=== PATIENT | male | born 1935 | race Caucasian/White ===

== ENCOUNTER 2016-07-18 10:04 | Inpatient (IN) | payer MEDICARE ==
[~2016-07-18] VITALS: Ht 170.2 cm; Wt 82.3 kg
[2016-07-18] VITALS (7 sets, daily range): BP systolic 117–135; BP diastolic 66–78; PULSE 72–85; RESP 15–20; TEMP 97.3–97.8; O2SAT 97
[~2016-07-18 10:04] MED LIST: ACYC-1 PO; AMLO10 PO; CEPROZIL; GABA300 PO; LISI5 PO; OMEP20TA OR; SIMV10TA OR; SITA100 PO; SULF-154 PO; TERA10CA3 PO; TYLE3 PO; XANA0.5T PO
[2016-07-18] MEDS ORDERED: SODIUM CHLORIDE 0.9% FLUSH 5 ML FLUSH IVF PRN (10:15)
[2016-07-18] MEDS ORDERED: AMLO10TA2 PO (10:19)
[2016-07-18] MEDS ORDERED: LISI40TA PO (10:19)
[2016-07-18] MEDS ORDERED: ALPR0.5T3 PO (10:19)
[2016-07-18] MEDS ORDERED: TERA10CA3 PO (10:19)
[2016-07-18] MEDS ORDERED: SITA50 PO (10:19)
[2016-07-18] MEDS ORDERED: GLIP10TA6 PO (10:19)
[2016-07-18] MEDS ORDERED: SIMV10TA PO (10:19)
[2016-07-18] MEDS ORDERED: ASPI81TA81 (10:19)
--- NOTE | 2016-07-18 10:21 | PD ---
HPI Chief Complaint: GI Complaint Time Seen by Provider: 10:07 Travel History International Travel<30 days: No Contact w/Intl Traveler<30days: No Traveled to known affect area: No History of Present Illness HPI This patient complains of bright red rectal bleeding that started at 3:30 AM this morning. Duration is 6 hours. Severity of symptoms is moderate. No syncope but he is lightheaded and feels weak. No abdominal pain. He has long- standing history of intermittent rectal bleeding. He has had many colonoscopies. In [place] in January 2016 he had significant rectal bleeding and was hospitalized and underwent partial colectomy for diverticular bleeding. He takes no blood thinners. He recently started taking a baby aspirin daily. No alleviating factors. PFSH Past Medical History Asthma: Yes Blood Disorders: No Anxiety: Yes Heart Rhythm Problems: No Cancer: No Cardiovascular Problems: No High Cholesterol: Yes Chemotherapy: No Chest Pain: No Congestive Heart Failure: No Diabetes: Yes (2) Patient Takes Glucophage: No Diminished Hearing: No Diverticulitis: Yes Endocrine: No Gastrointestinal Disorders: Yes (NAUSEA;DIVERTICULOSIS) GERD: Yes Genitourinary: No Hepatitis: No Hiatal Hernia: No Hypertension: Yes Immune Disorder: No Medical other: Yes (DIFFICULTY SWALLOWING; HAS PAIN RIGHT SIDE AFTER EATING; HX RECTAL BLEEDING) Musculoskeletal: No Neurologic: No Psychiatric: No Reproductive: No Respiratory: No Radiation Therapy: No Sleep Apnea: No Thyroid Disease: No Past Surgical History Abdominal Surgery: Yes (CHOLYCYSTECTOMY) AICD: No Appendectomy: Yes Cholecystectomy: Yes Joint Replacement: No Oral Surgery: Yes (TONSILS) Pacemaker: No Tonsillectomy: Yes Other Surgery: Yes (see hx) Social History Alcohol Use: No Tobacco Use: No Substance Use: No Allergies-Medications (Allergen,Severity, Reaction): Coded Allergies: Amoxicillin (Verified Allergy, Mild, RASH, 07/18/16) PT STATES "THRUSH" 30 YEARS AGO Reported Meds & Prescriptions Reported Meds & Active Scripts Active Reported Glipizide 10 Mg Tab 10 Mg PO BIDAC Take 30 minutes before a meal Aspir-81 (Aspirin) 81 Mg Tabdr Alprazolam 0.5 Mg Tab 0.5 Mg PO Q4H PRN Simvastatin 10 Mg Tab 10 Mg PO DAILY Terazosin (Terazosin HCl) 10 Mg Cap 10 Mg PO HS Januvia (Sitagliptin Phosphate) 50 Mg Tab 50 Mg PO DAILY Lisinopril 40 Mg Tab 40 Mg PO DAILY Amlodipine (Amlodipine Besylate) 10 Mg Tab 10 Mg PO DAILY Review of Systems General / Constitutional: No: Fever Eyes: No: Visual changes HENT: No: Headaches Cardiovascular: No: Chest Pain or Discomfort Respiratory: No: Shortness of Breath Gastrointestinal: Positive: Hematochezia, No: Abdominal Pain Genitourinary: No: Dysuria Musculoskeletal: No: Pain Skin: No Rash Neurologic: No: Weakness Psychiatric: No: Depression Endocrine: No: Polydipsia Hematologic/Lymphatic: No: Easy Bruising Physical Exam Narrative GENERAL: Well-nourished, well-developed patient in no apparent distress. SKIN: Warm and dry. HEAD: Atraumatic. Normocephalic. EYES: Pupils equal and round. No scleral icterus. No injection or drainage. ENT: No nasal bleeding or discharge. Mucous membranes pink and moist. NECK: Trachea midline. No JVD. CARDIOVASCULAR: Regular rate and rhythm. No murmur appreciated. RESPIRATORY: No accessory muscle use. Clear to auscultation. Breath sounds equal bilaterally. GASTROINTESTINAL: Abdomen soft, non-tender, nondistended. Hepatic and splenic margins not palpable. MUSCULOSKELETAL: No obvious deformities. No clubbing. No cyanosis. No edema. NEUROLOGICAL: Awake and alert. No obvious cranial nerve deficits. Motor grossly within normal limits. Normal speech. PSYCHIATRIC: Appropriate mood and affect; insight and judgment normal. Data Data Last Documented VS Vital Signs Date Time Temp Pulse Resp B/P Pulse Ox O2 Delivery O2 Flow Rate FiO2 07/18/16 10:05 97.8 85 15 135/78 97 Orders Basic Metabolic Panel (Bmp) (07/18/16 10:15) Complete Blood Count With Diff (07/18/16 10:15) Prothrombin Time / Inr (Pt) (07/18/16 10:15) Act Partial Throm Time (Ptt) (07/18/16 10:15) Ecg Monitoring (07/18/16 10:15) Iv Access Insert/Monitor (07/18/16 10:15) Oximetry (07/18/16 10:15) Sodium Chloride 0.9% Flush (Ns Flush) (07/18/16 10:15) Consult Gastroenterology (07/18/16 ) Place In Observation (07/18/16 ) Diet Npo (07/18/16 Lunch) Sodium Chloride 0.9% Flush (Ns Flush) (07/18/16 13:15) Sodium Chloride 0.9% Flush (Ns Flush) (07/18/16 21:00) Pantoprazole Inj (Protonix Inj) (07/19/16 09:00) Hgb & Hct (07/18/16 13:10) Hgb & Hct (07/18/16 21:10) Hgb & Hct (07/19/16 05:10) Hgb & Hct (07/19/16 13:10) Hgb & Hct (07/19/16 21:10) Hgb & Hct (07/20/16 05:10) Type And Screen (07/18/16 13:10) Resp Oxygen Brandan C Titrat 1-4 L (07/18/16 ) Scd Bilateral/Knee High LANA.BID (07/18/16 13:10) ^ Other Nursing Orders (07/18/16 13:10) Vital Signs (Adult) Q4H (07/18/16 13:10) Activity Bed Rest (07/18/16 13:10) ^ Risk Control Manager / Telemetry .CONTINUOUS (07/18/16 13:10) Intake + Output LANA.QSHIFT (07/18/16 13:10) Sodium Chlor 0.9% 1000 Ml Inj (Ns 1000 M (07/18/16 14:00) Acetaminophen (Tylenol) (07/18/16 13:15) Ondansetron Inj (Zofran Inj) (07/18/16 13:15) Bisacodyl Supp (Dulcolax Supp) (07/18/16 13:15) Magnesium Hydroxide Liq (Milk Of Magnesi (07/18/16 13:15) Sennosides (Senokot) (07/18/16 13:15) Basic Metabolic Panel (Bmp) (07/19/16 06:00) Naloxone Inj (Narcan Inj) (07/18/16 13:15) Alprazolam (Xanax) (07/18/16 13:15) Bedside Glucose LANA.AC&HS&03 (07/18/16 13:16) ^ Blood Glucose Goal (Criteria (07/18/16 13:16) ^ Hypoglycemia 51 - 69 Mg/Dl (07/18/16 13:16) ^ Hypoglycemia 50 Mg/Dl Or < (07/18/16 13:16) ^ Notify Dr: Other (07/18/16 13:16) Dextrose 50% In [place] (Vial) Inj (D50w (Vi (07/18/16 13:30) Glucagon Inj (Glucagon Inj) (07/18/16 13:30) Insulin Aspart Supplemtl Scale (Novolog (07/18/16 16:00) Labs Laboratory Tests Test 07/18/16 10:15 White Blood Count 13.4 TH/MM3 Red Blood Count 4.92 MIL/MM3 Hemoglobin 12.3 GM/DL Hematocrit 38.0 % Mean Corpuscular Volume 77.2 FL Mean Corpuscular Hemoglobin 24.9 PG Mean Corpuscular Hemoglobin 32.3 % Concent Red Cell Distribution Width 17.1 % Platelet Count 244 TH/MM3 Mean Platelet Volume 9.2 FL Neutrophils (%) (Auto) 74.7 % Lymphocytes (%) (Auto) 13.2 % Monocytes (%) (Auto) 8.8 % Eosinophils (%) (Auto) 2.5 % Basophils (%) (Auto) 0.8 % Neutrophils # (Auto) 10.0 TH/MM3 Lymphocytes # (Auto) 1.8 TH/MM3 Monocytes # (Auto) 1.2 TH/MM3 Eosinophils # (Auto) 0.3 TH/MM3 Basophils # (Auto) 0.1 TH/MM3 CBC Comment AUTO DIFF Differential Comment AUTO DIFF CONFIRMED Platelet Estimate NORMAL Platelet Morphology Comment NORMAL Prothrombin Time 10.2 SEC Prothromb Time International 0.9 RATIO Ratio Activated Partial 27.9 SEC Thromboplast Time Sodium Level 141 MEQ/L Potassium Level 4.2 MEQ/L Chloride Level 108 MEQ/L Carbon Dioxide Level 25.1 MEQ/L Anion Gap 8 MEQ/L Blood Urea Nitrogen 29 MG/DL Creatinine 1.66 MG/DL Estimat Glomerular Filtration 40 ML/MIN Rate Random Glucose 145 MG/DL Calcium Level 8.1 MG/DL MDM Medical Decision Making Medical Screen Exam Complete: Yes Emergency Medical Condition: Yes Medical Record Reviewed: Yes Differential Diagnosis Diverticular bleed, internal hemorrhoids, polyp Narrative Course I have reviewed the patient's electronic medical record. Last hemoglobin on file was 13.7 done 2 years ago. Review GI consultation from 3 years ago. IV placed CBC shows hemoglobin of 12.3 Metabolic profile reasonably normal Coagulation studies are normal Patient's abdomen is soft and benign and nontender. His vital signs are normal. But he is having significant active bright red rectal bleeding while here in the ER. He is lightheaded and feeling weak and not comfortable going home. I think his hemoglobin will drop on recheck and I reviewed his case with the hospitalist. He will be admitted for acute lower GI bleed. Diagnosis Primary Impression: Lower GI bleed Admitting Information Admitting Physician Requests: Admit Naun Fong MD Jul 18, 2016 10:21
[2016-07-18 10:29] LABS: BASOPHIL # 0.1 TH/MM3 (0-0.2); BASOPHIL % 0.8 % (0.0-2.0); EOSINOPHIL # 0.3 TH/MM3 (0-0.4); EOSINOPHIL % 2.5 % (0.0-4.0); LYMPH % 13.2 % (9.0-44.0); LYMPHOCYTE # 1.8 TH/MM3 (1.0-4.8); MEAN CELL VOLUME 77.2 FL (80.0-100.0); MEAN CORPUSCULAR HEMOGLOBIN 24.9 PG (27.0-34.0); MEAN CORPUSCULAR HGB CONC 32.3 % (32.0-36.0); MONO % 8.8 % (0.0-8.0); NEUT % 74.7 % (16.0-70.0); PLATELET COUNT 244 TH/MM3 (150-450); RED BLOOD COUNT 4.92 MIL/MM3 (4.50-5.90); RED CELL DISTRIBUTION WIDTH 17.1 % (11.6-17.2); WHITE BLOOD COUNT 13.4 TH/MM3 (4.0-11.0)
[2016-07-18 10:38] LABS: HEMO FLAGS AUTO DIFF
[2016-07-18 10:40] LABS: APTT (PATIENT) 27.9 SEC (24.3-30.1); INTERNATIONAL NORMALIZED RATIO 0.9 RATIO; PROTHROMBIN TIME - PATIENT 10.2 SEC (9.8-11.6)
[2016-07-18 10:49] LABS: BICARBONATE 25.1 MEQ/L (21.0-32.0); POTASSIUM 4.2 MEQ/L (3.5-5.1)
[2016-07-18 11:18] LABS: PLATELET ESTIMATE SMEAR NORMAL (NORMAL); PLATELET MORPHOLOGY NORMAL (NORMAL); SCAN/DIFF AUTO DIFF CONFIRMED
[2016-07-18] MEDS ORDERED: BISACODYL 10 MG SUPP PR PRN (13:15)
[2016-07-18] MEDS ORDERED: NALOXONE HCL 0.4 MG/ML AMP IV PRN (13:15)
[2016-07-18] MEDS ORDERED: MAGNESIUM HYDROXIDE SUSP 30 ML CUP PO PRN (13:15)
[2016-07-18] MEDS ORDERED: SODIUM CHLORIDE 0.9% FLUSH 5 ML FLUSH IV PRN (13:15)
[2016-07-18] MEDS ORDERED: ALPRAZolam 0.5 MG TAB PO PRN (13:15)
[2016-07-18] MEDS ORDERED: ONDANSETRON HCL 4 MG/2 ML VIAL IVP PRN (13:15)
[2016-07-18] MEDS ORDERED: ACETAMINOPHEN 325 MG TAB PO PRN (13:15)
[2016-07-18] MEDS ORDERED: SENNOSIDES 8.6 MG TAB PO PRN (13:15)
[2016-07-18] MEDS ORDERED: GLUCAGON 1 MG/ML VIAL OTHER PRN (13:30)
[2016-07-18] MEDS ORDERED: DEXTROSE 50% IN WATER 50 ML VIAL(D50) IV PUSH PRN (13:30)
[2016-07-18] MEDS: SODIUM CHLOR 0.9% 1000 ML INJ 1,000 ML IV SCH (13:55)
[2016-07-18] MEDS: INSULIN ASPART SUPPLEMENTAL SCALE SQ SCH ×2 (16:00→21:00)
[2016-07-18] MEDS ORDERED: DEXTROSE 5%-LACTATED RING INJ 1,000 ML IV SCH (17:37)
--- NOTE | 2016-07-18 17:41 | HHI.HP ---
[facility] Primary Care Physician Bambi Araujo MD Admission Diagnosis LOWER GI BLEED Diagnoses: Chief Complaint: rectal bleeding Travel History International Travel<30 Days: No Contact w/Intl Traveler <30 Da: No Traveled to Known Affected Are: No History of Present Illness 80-year-old male with history of HTN, HLD, DM, GERD, BPH, CKD stage III, asthma , diverticulosis, prior GI bleeding, presents with acute onset of rectal bleeding today 07/18. The patient reports a long history of GI bleeding with multiple colonoscopies, diverticular clipping, and recently partial colectomy in [place] in January 2016. He states he has been doing very well since the colectomy, no further bleeding. Approximately 2 weeks ago he started having intermittent chest pains which he states are "hard to explain", located across the anterior chest, sometimes down the left arm, not associated with exertion, lasts several minutes then goes away on its own. No other symptoms like dizziness, SOB, palpitations, diaphoresis, leg pain and swelling. No hx CAD or PE. He started taking baby aspirin 2 weeks ago because of the chest pain. He saw his PCP Dr. Araujo who has referred him to a phys therapist. However this morning around 3:30am the patient started having bright red rectal bleeding mixed with dark stools. He states this is different from his prior GI bleeds because today he had some upper abdominal/epigastric "gurgling", no pain, just uncomfortable. Denies NSAID use. Denies any nausea/vomiting/hematemesis. Denies fevers/chills. He now started feeling weak and lightheaded. He has no other medical complaints at this time. He is from [place], but follows with GI Dr. Ye while here in [place], last seen 2 years ago. Upon arrival, Hgb 12.3, down from 13.7 in 2014. He continues to have BRBPR in the ED. Review of Systems Constitutional: DENIES: Diaphoretic episodes, Fever, Chills, Dizziness Endocrine: DENIES: Polydipsia, Polyuria, Polyphagia Eyes: DENIES: Blurred vision, Diplopia, Double Vision Ears, nose, mouth, throat: DENIES: Throat pain, Running Nose, Odynophagia Respiratory: DENIES: Cough, Shortness of breath Cardiovascular: COMPLAINS OF: Chest pain, DENIES: Palpitations, Dyspnea on Exertion, Lower Extremity Edema, Orthopnea Gastrointestinal: COMPLAINS OF: Abdominal pain, Bloody stools, DENIES: Constipation, Diarrhea, Nausea, Vomiting Genitourinary: DENIES: Urinary frequency, Urgency, Dysuria Musculoskeletal: DENIES: Back pain, Neck pain Integumentary: DENIES: Pruritus, Rash Hematologic/lymphatic: DENIES: Bruising, Lymphadenopathy Immunologic/allergic: DENIES: Eczema, Urticaria Neurologic: DENIES: Abnormal gait, Headache, Localized weakness Psychiatric: DENIES: Anxiety, Depression Past Family Social History Past Medical History HTN HLD DM, type 2 GERD BPH CKD stage III asthma diverticulosis prior GI bleeding anxiety Past Surgical History Partial colectomy Jan 2016 in [place] Multiple EGD/colonoscopy with diverticular clipping Cholecystectomy Appendectomy Tonsillectomy Bilateral eye lasik surgery Reported Medications Glipizide 10 Mg Tab 10 Mg PO BIDAC Take 30 minutes before a meal Aspir-81 (Aspirin) 81 Mg Tabdr Alprazolam 0.5 Mg Tab 0.5 Mg PO Q4H PRN Simvastatin 10 Mg Tab 10 Mg PO DAILY Terazosin (Terazosin HCl) 10 Mg Cap 10 Mg PO HS Januvia (Sitagliptin Phosphate) 50 Mg Tab 50 Mg PO DAILY Lisinopril 40 Mg Tab 40 Mg PO DAILY Amlodipine (Amlodipine Besylate) 10 Mg Tab 10 Mg PO DAILY Allergies: Coded Allergies: Amoxicillin (Verified Allergy, Mild, RASH, 07/18/16) PT STATES "THRUSH" 30 YEARS AGO Active Ordered Medications Current Medications Medications (Trade) Dose Ordered Sig/Noelle Route Start Time Stop Time Status Last Admin (NS Flush) 2 ml UNSCH PRN IV 07/18/16 13:15 (NS Flush) 2 ml BID IV 07/18/16 21:00 Pantoprazole Sodium 40 mg 40 mg DAILY IV 07/19/16 09:00 (NS 1000 ml Inj) 1,000 ml @ 70 mls/hr [id number] IV 07/18/16 14:00 07/18/16 13:55 (Tylenol) 650 mg Q4H PRN PO 07/18/16 13:15 (Zofran Inj) 4 mg Q6H PRN IVP 07/18/16 13:15 (Dulcolax Supp) 10 mg DAILY PRN VA 07/18/16 13:15 (Milk Of [place]ramona Liq) 30 ml Q12H PRN PO 07/18/16 13:15 (Senokot) 17.2 mg Q12H PRN PO 07/18/16 13:15 (Narcan Inj) 0.4 mg UNSCH PRN IV 07/18/16 13:15 (Xanax) 0.5 mg Q4H PRN PO 07/18/16 13:15 (D50w (Vial) Inj) 25 ml UNSCH PRN IV PUSH 07/18/16 13:30 (Glucagon Inj) 1 mg UNSCH PRN OTHER 07/18/16 13:30 Family History Grandmother with CVA Mother age 92 and father age 88, no significant health problems Social History Smoked tobacco socially in his 20s, none since Denies alcohol use or illicit drug use Physical Exam Vital Signs Vital Signs Date Time Temp Pulse Resp B/P Pulse Ox O2 Delivery O2 Flow Rate FiO2 07/18/16 16:06 72 18 117/69 97 Room Air 07/18/16 14:00 74 20 125/68 97 Room Air 07/18/16 13:26 80 18 124/66 97 Room Air 07/18/16 10:05 97.8 85 15 135/78 97 Physical Exam GENERAL: Well-nourished, well-developed patient in NAD. SKIN: Warm and dry. No rash. HEAD: Normocephalic. Atraumatic. EYES: Pupils equal and round. No scleral icterus. No injection or drainage. ENT: No nasal bleeding or discharge. Mucous membranes pink and moist. NECK: Supple. Trachea midline. CARDIOVASCULAR: Regular rate and rhythm. S1, S2 noted. No murmur appreciated. RESPIRATORY: No accessory muscle use. Clear to auscultation. Breath sounds equal bilaterally. GASTROINTESTINAL: Abdomen soft, nondistended, mild diffuse mid abdominal/ umbilical tenderness to palpation. Normoactive bowel sounds x4. MUSCULOSKELETAL: No obvious deformities. Extremities without clubbing, cyanosis , or edema. NEUROLOGICAL: Awake and alert. No obvious cranial nerve deficits. Motor grossly within normal limits. Normal speech. PSYCHIATRIC: Appropriate mood and affect; insight and judgment normal. Laboratory Laboratory Tests Test 07/18/16 10:15 White Blood Count 13.4 Red Blood Count 4.92 Hemoglobin 12.3 Hematocrit 38.0 Mean Corpuscular Volume 77.2 Mean Corpuscular Hemoglobin 24.9 Mean Corpuscular Hemoglobin 32.3 Concent Red Cell Distribution Width 17.1 Platelet Count 244 Mean Platelet Volume 9.2 Neutrophils (%) (Auto) 74.7 Lymphocytes (%) (Auto) 13.2 Monocytes (%) (Auto) 8.8 Eosinophils (%) (Auto) 2.5 Basophils (%) (Auto) 0.8 Neutrophils # (Auto) 10.0 Lymphocytes # (Auto) 1.8 Monocytes # (Auto) 1.2 Eosinophils # (Auto) 0.3 Basophils # (Auto) 0.1 CBC Comment AUTO DIFF Differential Comment AUTO DIFF CONFIRMED Platelet Estimate NORMAL Platelet Morphology Comment NORMAL Prothrombin Time 10.2 Prothromb Time International 0.9 Ratio Activated Partial 27.9 Thromboplast Time Sodium Level 141 Potassium Level 4.2 Chloride Level 108 Carbon Dioxide Level 25.1 Anion Gap 8 Blood Urea Nitrogen 29 Creatinine 1.66 Estimat Glomerular Filtration 40 Rate Random Glucose 145 Calcium Level 8.1 Result Diagram: 07/18/16 1015 07/18/16 1015 Assessment and Plan Problem List: (1) GI bleed ICD Code: K92.2 Status: Acute (2) Chest pain ICD Code: R07.9 Status: Acute (3) Hypertension ICD Code: I10 Status: Chronic (4) Diabetes mellitus ICD Code: E11.9 Status: Chronic (5) Hyperlipidemia ICD Code: E78.5 Status: Chronic (6) Anxiety ICD Code: F41.9 Status: Chronic Assessment and Plan 80-year-old male with history of HTN, HLD, DM, GERD, BPH, CKD stage III, asthma , anxiety, diverticulosis, prior GI bleeding, presents with acute onset of rectal bleeding today 07/18. The patient reports a long history of GI bleeding with multiple colonoscopies, diverticular clipping in the past, and recently partial colectomy in [place] in January 2016. Has been doing very well since the colectomy, no further bleeding, until this morning around 3:30am. He is from [place], but follows with GI Dr. Flora Ye while here in [place], last seen 2 years ago. GI Bleeding: BRBPR mixed with dark stools, acute onset 07/18. Hgb 12.3, down from 13.7 in 2015. Hold patient's aspirin. Start on IVF, IV Protonix. Monitor serial H&H, transfuse if Hgb < 8.0. Consult GI, Dr. Ye. Clear liquid diet for now, NPO after midnight. Chest Pains, atypical: intermittent [id number]. Holding aspirin with GIB as above. Check serial cardiac enzymes and EKG x2. Check CXR. Nuclear stress test in the am. Acute on Chronic Kidney Disease, stage III: Cr 1.66, previously 1.41 in 2014. Continue on IVF. Repeat BMP in the am. HTN: chronic, holding patient's Lisinopril and Norvasc for now, concern for hypovolemia resulting in hypotension with GI bleed as above. Monitor BP, add antihypertensives as needed. HLD: chronic, continue patient's statin. DM, type 2: hold patient's Glipizide and Januvia for now. Monitor Accu-cheks and cover with SSI. Anxiety: chronic, continue patient's Xanax prn. DVT Prophylaxis: teds/SCDs Written by Judie Villarreal, acting as scribe for Dr. Rosales on 07/18/16 at 17: 15. The documentation accurately reflects the work performed [id number] by me on at [id number] Code Status Full Code Discussed Condition With Patient, ER Judie Mcfarlane PA-C Jul 18, 2016 17:41 [place] Rosales MD Jul 18, 2016 18:01
--- NOTE | 2016-07-18 18:12 | RADRPT ---
EXAM DATE/TIME: 07/18/2016 18:03 [facility] COMPARISON: CHEST SINGLE AP, August 16, 2014, 9:52. INDICATIONS : Chest pain. MEDICAL HISTORY : Hypertension. SURGICAL HISTORY : None. ENCOUNTER: Initial ACUITY: 1 day PAIN SCORE: 0/10 LOCATION: Bilateral chest FINDINGS: A single view of the chest demonstrates the lungs to be symmetrically aerated without evidence of mas s, infiltrate or effusion. The cardiomediastinal contours are unremarkable. Osseous structures are intact. CONCLUSION: No acute disease. Lupillo Landaverde MD on July 18, 2016 at 18:10 Board Certified Radiologist. This report was verified electronically.
[2016-07-18 19:05] LABS: CREATINE KINASE 97 U/L (39-308)
--- NOTE | 2016-07-18 20:32 | MB ---
cc: MARIFER ROSALES MD, JUAN DATE OF CONSULTATION: 07/18/2016. REASON FOR CONSULTATION: Lower GI bleed. HISTORY OF PRESENT ILLNESS: Mr. Mosqueda is a pleasant 80-year-old gentleman with history of hypertension, hyperlipidemia, diabetes, gastroesophageal reflux disease, BPH, chronic kidney disease, diverticulosis status post partial colectomy in January of 2016 who presented today to the hospital complaining of an episode of rectal bleeding. He reports that around 03:00 a.m. this morning he had an episode of hematochezia with dark and bright red blood as well as some clots in it. He had a repeat episode around 06:00 a.m., which was similar to the first one and that made him come to the emergency room to be evaluated. He has had an episode similar to this in the past. He had a recent surgery done in [place] where they removed part of his sigmoid colon secondary to diverticulosis. He has not had any problems since surgery until now. While in the hospital, he had one more episode around noon today. He did start taking two baby aspirin for the past week or so due to some chest pressure episodes. He also reports he had a significant increase in blood pressure before these episodes happened. He also noticed some upper abdominal discomfort; however, denies any nausea, vomiting or hematemesis. He had an upper endoscopy before the surgery and as per the patient, it was normal. Since his arrival, he has been hemodynamically stable. His hemoglobin on admission was 12.3. PAST MEDICAL HISTORY: 1. Hypertension. 2. Hyperlipidemia. 3. Diabetes type 2. 4. Gastroesophageal reflux disease (GERD). 5. Benign prostate hypertrophy. 6. Chronic kidney disease stage III. 7. Diverticulosis. 8. Asthma. PAST SURGICAL HISTORY: 1. Partial colectomy in January of 2016 in [place]. 2. Cholecystectomy. 3. Appendectomy. 4. Tonsillectomy. 5. Bilateral eye LASIK surgery. MEDICATIONS: 1. Glipizide 10 milligrams p.o. twice a day. 2. Aspirin 81 milligrams, two tablets daily. 3. Alprazolam 0.5 milligrams p.o. q. 4 hours. 4. Simvastatin 10 milligrams p.o. daily. 5. Terazosin 10 milligrams p.o. at bedtime. 6. Januvia 50 milligrams p.o. daily. 7. Lisinopril 40 milligrams p.o. daily. 8. Amlodipine 10 milligrams p.o. daily. ALLERGIES: AMOXICILLIN. REVIEW OF SYSTEMS: His review of systems is significant for hematochezia, chest pressure and abdominal pain. Otherwise 14-point medical review of systems is negative. PHYSICAL EXAMINATION: VITAL SIGNS: Temperature is 97.8, heart rate of 82, respiratory rate of 18, blood pressure 123/75 and satting 97% on room air. GENERAL: A well-developed male in no acute distress lying comfortably in bed. HEAD, EYES, EARS, NOSE, THROAT: Normocephalic and atraumatic. Extraocular muscles intact. Pupils equal, round and reactive to light and accommodation. The sclerae are nonicteric. Moist oral mucosa. NECK: The neck is supple. No jugular venous distention. No lymphadenopathy. CARDIOVASCULAR: Regular rate and rhythm, S1, S2. No murmurs, rubs or gallops. PULMONARY: Clear to auscultation bilaterally. No wheezing or rhonchi. ABDOMEN: Obese. Soft. Nontender. Nondistended. Bowel sounds are present in all four quadrants. EXTREMITIES: No cyanosis or edema. Pulses 2+ bilaterally. NEUROLOGIC: He is alert and oriented times three. Cranial nerves intact. Strength is 5/5 throughout. No focal deficits. LABORATORY DATA: White blood cell count 13.4, hemoglobin of 12.3, hematocrit of 38, platelet count of 244,000. Sodium 141, potassium 4.2, chloride 108, bicarbonate 25.1, creatinine 1.66, BUN of 29. INR 0.9. IMAGING STUDIES: He had a chest x-ray which showed no acute disease. ASSESSMENT AND PLAN: Mr. Mosqueda is a pleasant 80-year-old gentleman with prior episode of GI bleeding from diverticular disease. He is status post partial colectomy done in January of 2016 who presents today with an episode of hematochezia. He is currently hemodynamically stable with a hemoglobin of 12.3. PLAN: The GI bleeding is most likely a lower GI bleed, although he complains of some upper abdominal discomfort and he did take recent NSAIDS for the past week or so. The concern is for possible peptic ulcer disease, although this is less likely, possible recurrent diverticular bleed or ischemic colitis. 1. Recommend to continue supportive care. 2. Continue Protonix 40 milligrams IV daily. 3. Continue monitoring hemoglobin and hematocrit every 8 hours and transfuse as needed to keep hemoglobin above 7. 4. We will plan to perform an upper endoscopy and a flexible sigmoidoscopy tomorrow for evaluation of GI bleeding. 5. We will give the patient doses of magnesium citrate and Fleet enemas in the morning before the procedure. 6. The patient can be on a clear liquid diet for now and can be placed NPO at midnight for the procedures. We would like to thank Dr. Rosales for this consultation and for allowing us to participate in the care of Mr. Mosqueda. Please call us with any questions or concerns. GI will follow with you. MD NOY Medina/SHAHZAD /6:34 PM /8:16 PM
[2016-07-18] MEDS: SODIUM CHLORIDE 0.9% FLUSH 5 ML FLUSH IV SCH (21:00)
[2016-07-18 23:46] LABS: HEMATOCRIT 34.5 % (39.0-51.0)
[2016-07-19] VITALS (10 sets, daily range): BP systolic 103–152; BP diastolic 55–78; PULSE 80–132; RESP 16–18; TEMP 97–98.7; O2SAT 94–98
[2016-07-19 00:20] LABS: CREATINE KINASE 86 U/L (39-308)
[2016-07-19] MEDS: LACTATED RINGER'S 1000 ML IV SCH (02:00)
[2016-07-19] MEDS ORDERED: SODIUM CHLORID 0.9% 500 ML IV SCH (02:00)
[2016-07-19] MEDS: SODIUM CHLOR 0.9% 1000 ML INJ 1,000 ML IV SCH ×2 (03:56→20:04)
[2016-07-19 05:52] LABS: HEMATOCRIT 32.8 % (39.0-51.0)
[2016-07-19 06:01] LABS: POTASSIUM 3.8 MEQ/L (3.5-5.1)
[2016-07-19 06:03] LABS: HDL CHOLESTEROL 29.5 MG/DL (40.0-60.0)
[2016-07-19] MEDS: INSULIN ASPART SUPPLEMENTAL SCALE SQ SCH ×4 (06:08→21:00)
[2016-07-19] MEDS ORDERED: SOD PHOSPHATE/SOD BIPHOSPHATE (ADULT) ENEMA 133ML PR SCH ×2 (07:00)
[2016-07-19] MEDS ORDERED: MAGNESIUM CITRATE SOLN 300 ML BTL PO SCH ×3 (07:00→21:00)
[2016-07-19] MEDS: PANTOPRAZOLE SODIUM 40 MG VIAL IV SCH (09:26)
[2016-07-19] MEDS: SODIUM CHLORIDE 0.9% FLUSH 5 ML FLUSH IV SCH ×2 (09:26→20:21)
--- NOTE | 2016-07-19 12:26 | HHI.PR ---
Subjective Remarks Follow-up GI bleeding. He had 3 more episodes of bright red blood per rectum this morning. Still with dizziness. No chest pain and shortness of breath. Discussed with RN he needs to have stress test prior to endoscopy. Discussed with nuclear medicine. Objective Vitals Vital Signs Date Time Temp Pulse Resp B/P Pulse Ox O2 Delivery O2 Flow Rate FiO2 07/19/16 09:49 98 21 07/19/16 08:00 98.7 86 18 143/77 95 07/19/16 04:01 94 07/19/16 04:00 98.3 86 17 136/68 95 07/19/16 00:00 97.7 90 17 136/77 94 07/18/16 21:30 78 07/18/16 20:00 97.3 85 16 120/74 97 07/18/16 18:19 82 18 123/75 97 07/18/16 16:06 72 18 117/69 97 Room Air 07/18/16 14:00 74 20 125/68 97 Room Air 07/18/16 13:26 80 18 124/66 97 Room Air I/O 07/18/16 07/18/16 07/18/16 07/19/16 07/19/16 07/19/16 07:00 15:00 23:00 07:00 15:00 23:00 Intake Total 820 ml 418 ml Balance 820 ml 418 ml Intake Oral 240 ml 0 ml IV Total 580 ml 418 ml # Voids 1 2 # Bowel Movements 1 3 Result Diagram: 07/19/16 0506 07/19/16 0506 Imaging Last Impressions Chest X-Ray 07/18/16 0000 Signed Impressions: Service Date/Time: June 18:03 - CONCLUSION: No acute disease. Lupillo Landaverde MD Objective Remarks GENERAL: Well-nourished, well-developed patient in NAD. SKIN: Warm and dry. No rash. HEAD: Normocephalic. Atraumatic. EYES: Pupils equal and round. No scleral icterus. No injection or drainage. ENT: No nasal bleeding or discharge. Mucous membranes pink and moist. NECK: Supple. Trachea midline. CARDIOVASCULAR: Regular rate and rhythm. S1, S2 noted. No murmur appreciated. RESPIRATORY: No accessory muscle use. Clear to auscultation. Breath sounds equal bilaterally. GASTROINTESTINAL: Abdomen soft, nondistended, mild diffuse mid abdominal/ umbilical tenderness to palpation. Normoactive bowel sounds x4. MUSCULOSKELETAL: No obvious deformities. Extremities without clubbing, cyanosis , or edema. NEUROLOGICAL: Awake and alert. No obvious cranial nerve deficits. Motor grossly within normal limits. Normal speech. PSYCHIATRIC: Appropriate mood and affect; insight and judgment normal. A/P Problem List: (1) GI bleed ICD Code: K92.2 Status: Acute (2) Chest pain ICD Code: R07.9 Status: Acute (3) Hypertension ICD Code: I10 Status: Chronic (4) Diabetes mellitus ICD Code: E11.9 Status: Chronic (5) Hyperlipidemia ICD Code: E78.5 Status: Chronic (6) Anxiety ICD Code: F41.9 Status: Chronic Assessment and Plan 80-year-old male with history of HTN, HLD, DM, GERD, BPH, CKD stage III, asthma , anxiety, diverticulosis, prior GI bleeding, presents with acute onset of rectal bleeding today 07/18. The patient reports a long history of GI bleeding with multiple colonoscopies, diverticular clipping in the past, and recently partial colectomy in [place] in January 2016. Has been doing very well since the colectomy, no further bleeding, until morning around 3:30am of admission. He is from [place], but follows with GI Dr. Flora Ye while here in [place], last seen 2 years ago. GI Bleeding: BRBPR mixed with dark stools, acute onset 07/18. Hgb 12.3, down from 13.7 in 2014. Hold patient's aspirin. Start on IVF, IV Protonix. Monitor serial H&H, transfuse if Hgb < 8.0. Consult GI, Dr. Ye. Clear liquid diet for now, NPO after midnight. -Patient for endoscopy today Chest Pains, atypical: intermittent [id number]. Holding aspirin with GIB as above. Check serial cardiac enzymes and EKG x2. Check CXR. Nuclear stress test in the am. -Patient ruled out for OR 4 stress test today Acute on Chronic Kidney Disease, stage III: Cr 1.66, previously 1.41 in 2014. Continue on IVF. Repeat BMP in the am. -Improving renal function HTN: chronic, holding patient's Lisinopril and Norvasc for now, concern for hypovolemia resulting in hypotension with GI bleed as above. Monitor BP, add antihypertensives as needed. -Add as needed antihypertensives HLD: chronic, continue patient's statin. DM, type 2: hold patient's Glipizide and Januvia for now. Monitor Accu-cheks and cover with SSI. -Stable Anxiety: chronic, continue patient's Xanax prn. DVT Prophylaxis: teds/SCDs Discharge Planning Discharge per Guanaco Romero MD Jul 19, 2016 12:26
--- NOTE | 2016-07-19 12:47 | HHI.GIFU ---
Subjective Remarks Pt reports three episodes of rectal bleeding since last night. Denies abdominal pain. Objective Vitals I&O Vital Signs Date Time Temp Pulse Resp B/P Pulse Ox O2 Delivery O2 Flow Rate FiO2 07/19/16 09:49 98 21 07/19/16 08:00 98.7 86 18 143/77 95 07/19/16 04:01 94 07/19/16 04:00 98.3 86 17 136/68 95 07/19/16 00:00 97.7 90 17 136/77 94 07/18/16 21:30 78 07/18/16 20:00 97.3 85 16 120/74 97 07/18/16 18:19 82 18 123/75 97 07/18/16 16:06 72 18 117/69 97 Room Air 07/18/16 14:00 74 20 125/68 97 Room Air 07/18/16 13:26 80 18 124/66 97 Room Air I/O 07/18/16 07/18/16 07/18/16 07/19/16 07/19/16 07/19/16 07:00 15:00 23:00 07:00 15:00 23:00 Intake Total 820 ml 418 ml Balance 820 ml 418 ml Intake Oral 240 ml 0 ml IV Total 580 ml 418 ml # Voids 1 2 # Bowel Movements 1 3 Laboratory Laboratory Tests Test 07/18/16 07/18/16 07/19/16 18:15 23:17 05:06 Total Creatine Kinase 97 86 Troponin I LESS THAN 0.02 LESS THAN 0.02 Hemoglobin 10.8 10.5 Hematocrit 34.5 32.8 Blood Type A POSITIVE Antibody Screen NEGATIVE Sodium Level 143 Potassium Level 3.8 Chloride Level 111 Carbon Dioxide Level 26.0 Anion Gap 6 Blood Urea Nitrogen 24 Creatinine 1.36 Estimat Glomerular Filtration 51 Rate Random Glucose 110 Calcium Level 7.6 Triglycerides Level 124 Cholesterol Level 100 LDL Cholesterol 46 HDL Cholesterol 29.5 Cholesterol/HDL Ratio 3.38 Physical Exam HEENT: Pupils round and reactive to light; normocephalic; atraumatic; no jaundice. Throat is clear. ABDOMEN: Soft, nondistended, nontender; no hepatosplenomegaly; bowel sounds are present in all four quadrants. EXTREMITIES: No clubbing, cyanosis, or edema. SKIN: Normal; no rash; no jaundice. RECYCLING OR RUBBISH COLLECTOR: No focal deficits; alert and oriented times three. Assessment and Plan Assessment: (1) GI bleed (2) Anemia Plan 1. GI bleeding/anemia - concerns for possible diverticular bleed based on history vs PUD, AVM's or ischemic colitis - will have to postpone EGD and flexsig scheduled for today until nuclear stress test ordered by primary team completed and he is cleared from cardiology for procedures - continue to monitor H&H q8h and transfuse as needed to keep hb>7 - continue IV PPI 40mg daily - avoid NSAID's or anticoagulants - if pt becomes unstable, recommend urgent IR consult for possible bleeding scan and embolization - GI will follow 2. All other medical problems to be addressed by primary team Ty George MD Jul 19, 2016 12:47
--- NOTE | 2016-07-19 13:51 | HHI.DCPOC ---
Discharge Care Plan Diagnosis: (1) GI bleed Your Health Problems Are: Difficulty with ADL Exercise Tolerance Goals to Promote Your Health * To prevent worsening of your condition and complications * To maintain your health at the optimal level Directions to Meet Your Goals Take your medications as prescribed Follow your dietary instruction Follow activity as directed Keep your appointments as scheduled Take your immunizations and boosters as scheduled If your symptoms worsen call your PCP, if no PCP go to Urgent Care Center or Emergency Room Smoking is Dangerous to Your Health. Avoid second hand smoke Call the 24-hour hour crisis hotline for domestic abuse at Guanaco Rosales MD Jul 19, 2016 13:51
[2016-07-19] MEDS ORDERED: ENALAPRILAT 1.25 MG/ML VIAL IV PRN (14:00)
[2016-07-19] MEDS ORDERED: hydrALAZINE HCL 20 MG/ML VIAL IV PRN (14:00)
[2016-07-19] MEDS ORDERED: cloNIDine HCL 0.1 MG TAB PO PRN (14:00)
[2016-07-19] MEDS ORDERED: REGADENOSON INJ 0.4 MG/5 ML SYR ONE (14:08)
--- NOTE | 2016-07-19 16:07 | RADRPT ---
EXAM DATE/TIME: 07/19/2016 13:47 [facility] COMPARISON: No previous studies available for comparison. INDICATIONS : Substernal chest pressure. Rectal bleeding. Angina. DOSE: 25.8 mCi Tc99m Myoview at stress. 8.7 mCi Tc99m Myoview at rest. 0.4 mg Lexiscan STRESS SYMPTOMS: None. EJECTION FRACTION: 67% MEDICAL HISTORY : Diabetes mellitus type 2. Hypertension. Asthma. Diverticulitis. SURGICAL HISTORY : Cholecystectomy. Appendectomy. Partial cholectomy. ENCOUNTER: Initial ACUITY: 2 days PAIN SCALE: 3/10 LOCATION: Substernal chest TECHNIQUE: The patient underwent pharmacologic stress with infusion of prescribed dose. Continuous ECG tracing was monitored during stress. Gated SPECT imaging was performed after stress and conventional SPECT i maging was performed at rest. The examination was performed on a SPECT/CT scanner, both attenuation and non-corrected datasets were reviewed. FINDINGS: DISTRIBUTION: The maximum perfused segment at stress is in the anterior wall. PERFUSION STUDY: The pattern of perfusion at stress is within normal limits. GATED STUDY: There is intact wall motion and thickening without hypokinetic or dyskinetic segments. CONCLUSION: No evidence of fixed or reversible perfusion abnormalities. Normal wall motion and ejection fraction. RISK CATEGORY: Low (<1% Annual Mortality Rate) Edgar Rodgers MD on July 19, 2016 at 16:05 Board Certified Radiologist. This report was verified electronically.
[2016-07-19 17:50] LABS: HEMATOCRIT 31.2 % (39.0-51.0)
--- NOTE | 2016-07-19 22:45 | EKG ---
Date Performed: 07/18/2016 Time Performed: 22:50:57 PTAGE: 80 years EKG: Sinus rhythm INDETERMINATE AXIS RIGHT BUNDLE BRANCH BLOCK ABNORMAL ECG PREVIOUS TRACING : 07/18/2016 18.10 DOCTOR: Chago Wills Interpretating Date/Time 07/19/2016 22:42:46
--- NOTE | 2016-07-19 22:50 | EKG ---
Date Performed: 07/18/2016 Time Performed: 18:10:30 PTAGE: 80 years EKG: Sinus rhythm INDETERMINATE AXIS RIGHT BUNDLE BRANCH BLOCK ABNORMAL ECG PREVIOUS TRACING : 10/28/2013 13.06 DOCTOR: Chago Wills Interpretating Date/Time 07/19/2016 22:45:46
[2016-07-20] VITALS: BP 137/82; PULSE 81; RESP 20; TEMP 98.3; O2SAT 96
[2016-07-20] MEDS: LACTATED RINGER'S 1000 ML IV SCH ×2 (02:00→20:54)
[2016-07-20 04:00] VITALS: BP 136/78; PULSE 94; RESP 16; TEMP 97.6; O2SAT 97
[2016-07-20] MEDS: INSULIN ASPART SUPPLEMENTAL SCALE SQ SCH ×4 (06:20→20:50)
[2016-07-20 07:07] LABS: BICARBONATE 27.1 MEQ/L (21.0-32.0); MAGNESIUM 2.3 MG/DL (1.5-2.5); POTASSIUM 3.4 MEQ/L (3.5-5.1)
[2016-07-20 07:12] LABS: BASOPHIL # 0.1 TH/MM3 (0-0.2); BASOPHIL % 0.5 % (0.0-2.0); EOSINOPHIL # 0.3 TH/MM3 (0-0.4); HEMATOCRIT 30.5 % (39.0-51.0); LYMPH % 13.8 % (9.0-44.0); LYMPHOCYTE # 1.9 TH/MM3 (1.0-4.8); MEAN CELL VOLUME 77.8 FL (80.0-100.0); MEAN CORPUSCULAR HEMOGLOBIN 24.9 PG (27.0-34.0); MONO % 9.5 % (0.0-8.0); NEUT % 74.2 % (16.0-70.0); PLATELET COUNT 242 TH/MM3 (150-450); RED BLOOD COUNT 3.92 MIL/MM3 (4.50-5.90); RED CELL DISTRIBUTION WIDTH 17.3 % (11.6-17.2); WHITE BLOOD COUNT 13.5 TH/MM3 (4.0-11.0)
[2016-07-20] MEDS: PANTOPRAZOLE SODIUM 40 MG VIAL IV SCH (07:20)
[2016-07-20 07:41] LABS: HEMO FLAGS AUTO DIFF
[2016-07-20 08:00] VITALS: BP 150/73; PULSE 76; RESP 16; TEMP 97.8; O2SAT 96
[2016-07-20] MEDS: SODIUM CHLOR 0.9% 1000 ML INJ 1,000 ML IV SCH ×2 (08:54→20:54)
[2016-07-20] MEDS: SODIUM CHLORIDE 0.9% FLUSH 5 ML FLUSH IV SCH ×2 (09:00→20:43)
[2016-07-20 09:31] LABS: SCAN/DIFF AUTO DIFF CONFIRMED
--- NOTE | 2016-07-20 09:59 | HHI.GIFU ---
Subjective Remarks Pt reports bleeding has slow down, minimal amounts seen. feels very weak still. Denies abdominal pain, Objective Vitals I&O Vital Signs Date Time Temp Pulse Resp B/P Pulse Ox O2 Delivery O2 Flow Rate FiO2 07/20/16 04:00 97.6 94 16 136/78 97 07/20/16 00:00 98.3 81 20 137/82 96 07/19/16 20:05 87 07/19/16 20:00 98.5 91 16 152/78 97 07/19/16 16:00 98.0 80 16 134/70 96 07/19/16 12:00 98.4 87 16 135/73 96 I/O 07/19/16 07/19/16 07/19/16 07/20/16 07/20/16 07/20/16 07:00 15:00 23:00 07:00 15:00 23:00 Intake Total 418 ml 739 ml 363 ml Output Total 100 ml 200 ml Balance 418 ml 639 ml 163 ml Intake Oral 0 ml 350 ml IV Total 418 ml 389 ml 363 ml Output Urine Total 100 ml 200 ml # Voids 2 4 1 1 # Bowel Movements 3 4 2 7 Laboratory Laboratory Tests Test 07/19/16 07/20/16 17:34 06:07 Hemoglobin 10.0 9.7 Hematocrit 31.2 30.5 White Blood Count 13.5 Red Blood Count 3.92 Mean Corpuscular Volume 77.8 Mean Corpuscular Hemoglobin 24.9 Mean Corpuscular Hemoglobin 32.0 Concent Red Cell Distribution Width 17.3 Platelet Count 242 Mean Platelet Volume 9.1 Neutrophils (%) (Auto) 74.2 Lymphocytes (%) (Auto) 13.8 Monocytes (%) (Auto) 9.5 Eosinophils (%) (Auto) 2.0 Basophils (%) (Auto) 0.5 Neutrophils # (Auto) 10.0 Lymphocytes # (Auto) 1.9 Monocytes # (Auto) 1.3 Eosinophils # (Auto) 0.3 Basophils # (Auto) 0.1 CBC Comment AUTO DIFF Differential Comment AUTO DIFF CONFIRMED Sodium Level 145 Potassium Level 3.4 Chloride Level 111 Carbon Dioxide Level 27.1 Anion Gap 7 Blood Urea Nitrogen 16 Creatinine 1.28 Estimat Glomerular Filtration 54 Rate Random Glucose 108 Calcium Level 7.8 Magnesium Level 2.3 Physical Exam HEENT: Pupils round and reactive to light; normocephalic; atraumatic; no jaundice. Throat is clear. ABDOMEN: Soft, nondistended, nontender; no hepatosplenomegaly; bowel sounds are present in all four quadrants. EXTREMITIES: No clubbing, cyanosis, or edema. SKIN: Normal; no rash; no jaundice. STOCK WETTER: No focal deficits; alert and oriented times three. Assessment and Plan Assessment: (1) GI bleed (2) Anemia Plan 1. GI bleeding/anemia - concerns for possible diverticular bleed based on history vs PUD, AVM's or ischemic colitis - will perform EGD and flexsig today . Keep NPO. Will give enemas before procedure. - continue to monitor H&H q12h and transfuse as needed to keep hb>7 - continue IV PPI 40mg daily - avoid NSAID's or anticoagulants - if pt becomes unstable, recommend urgent IR consult for possible bleeding scan and embolization 2. All other medical problems to be addressed by primary team Ty George MD Jul 20, 2016 09:59
[2016-07-20] MEDS ORDERED: SOD PHOSPHATE/SOD BIPHOSPHATE (ADULT) ENEMA 133ML PR ONE ×2 (10:00→11:00)
[2016-07-20] MEDS ORDERED: POTASSIUM CHLOR 20 MEQ PREMIX 100 ML IV ONE (11:00)
[2016-07-20 12:00] VITALS: BP 171/77; PULSE 80; RESP 16; TEMP 98.1; O2SAT 95
--- NOTE | 2016-07-20 12:44 | HHI.PR ---
Subjective Remarks Follow up for GIB. Complete bowel prep overnight. No further bleeding, stools are clear. He feels a little dizzy. He denies any abdominal pain. Going for EGD and colonoscopy today. Has outpatient cardiology follow-up set up with PCP. Objective Vitals Vital Signs Date Time Temp Pulse Resp B/P Pulse Ox O2 Delivery O2 Flow Rate FiO2 07/20/16 08:00 97.8 76 16 150/73 96 07/20/16 04:00 97.6 94 16 136/78 97 07/20/16 00:00 98.3 81 20 137/82 96 07/19/16 20:05 87 07/19/16 20:00 98.5 91 16 152/78 97 07/19/16 16:00 98.0 80 16 134/70 96 I/O 07/19/16 07/19/16 07/19/16 07/20/16 07/20/16 07/20/16 07:00 15:00 23:00 07:00 15:00 23:00 Intake Total 418 ml 739 ml 363 ml Output Total 100 ml 200 ml Balance 418 ml 639 ml 163 ml Intake Oral 0 ml 350 ml IV Total 418 ml 389 ml 363 ml Output Urine Total 100 ml 200 ml # Voids 2 4 1 1 # Bowel Movements 3 4 2 7 Result Diagram: 07/20/16 0607 07/20/16 0607 Imaging Last Impressions Myocardial Perfusion Scan Nuc Med 07/19/16 0600 Signed Impressions: Service Date/Time: Tuesday, July 19, 2016 13:47 - CONCLUSION: No evidence of fixed or reversible perfusion abnormalities. Normal wall motion and ejection fraction. RISK CATEGORY: Low (<1%% Annual Mortality Rate) Edgar Rodgers MD Chest X-Ray 07/18/16 0000 Signed Impressions: Service Date/Time: June 18:03 - CONCLUSION: No acute disease. Lupillo Landaverde MD Objective Remarks GENERAL: Well-developed well-nourished. In no acute distress. Ambulating in the room. SKIN: Warm and dry. No lesions noted. HEENT: Normocephalic. Pupils equal and round. Mucous membranes pink and moist. CARDIOVASCULAR: Regular rate and rhythm. No murmur appreciated. RESPIRATORY: No accessory muscle use. Clear to auscultation. Breath sounds equal bilaterally. GASTROINTESTINAL: Abdomen soft, non-tender, nondistended. Bowel sounds x4. MUSCULOSKELETAL: No obvious deformities. No clubbing or cyanosis. No edema. NEUROLOGICAL: Awake and alert. No focal neurological deficits. Moves upper and lower extremities spontaneously. Normal speech. PSYCHIATRIC: Appropriate mood and affect; insight and judgment normal. A/P Problem List: (1) GI bleed ICD Code: K92.2 Status: Acute (2) Chest pain ICD Code: R07.9 Status: Acute (3) Hypertension ICD Code: I10 Status: Chronic (4) Diabetes mellitus ICD Code: E11.9 Status: Chronic (5) Hyperlipidemia ICD Code: E78.5 Status: Chronic (6) Anxiety ICD Code: F41.9 Status: Chronic Assessment and Plan 80-year-old male with history of HTN, HLD, DM, GERD, BPH, CKD stage III, asthma , anxiety, diverticulosis, prior GI bleeding, presents with acute onset of rectal bleeding today 07/18. The patient reports a long history of GI bleeding with multiple colonoscopies, diverticular clipping in the past, and recently partial colectomy in [place] in January 2016. Has been doing very well since the colectomy, no further bleeding, until morning around 3:30am of admission. He is from [place], but follows with GI Dr. Flora Ye while here in [place], last seen 2 years ago. GI Bleeding: BRBPR mixed with dark stools, acute onset 07/18. Hgb decreased from 13.7 in 2015. Hold patient's aspirin. Continue on IVF, IV Protonix. Monitor serial H&H, transfuse if Hgb < 8.0. Consulted GI, Dr. Ye. Diet per GI. -Hemoglobin remained stable overnight, continue to monitor -Patient for endoscopy today Chest Pains, atypical: intermittent [id number]. Holding aspirin with GIB as above. Cardiac enzymes and EKG unremarkable x2. Chest x-ray clear. Nuclear stress test with no signs of ischemia. -Continue outpatient cardiology follow-up. Acute on Chronic Kidney Disease, stage III: Cr 1.66, previously 1.41 in 2014. Continue on IVF. Repeat BMP shows improvement in renal function. -Improving, monitor HTN: chronic, holding patient's Lisinopril and Norvasc for now, concern for hypovolemia resulting in hypotension with GI bleed as above. Monitor BP, add antihypertensives as needed. -As needed antihypertensives for now HLD: chronic, continue patient's statin. DM, type 2: hold patient's Glipizide and Januvia for now while nothing by mouth for testing. Monitor Accu-cheks and cover with SSI. -Stable Chronic leukocytosis. Op f/u Anxiety: chronic, continue patient's Xanax prn. DVT Prophylaxis: teds/SCDs Written by Lauro Espinoza, acting as scribe for Dr. Rosales on 07/20/16 at 12:42. The documentation accurately reflects the work performed [id number] by me on at 1242. Discharge Planning Disposition pending results of endoscopy today. Problem Qualifiers (1) Hypertension: Qualified Code: I10 - Essential hypertension Lauro Espinoza Jul 20, 2016 12:44 Guanaco Rosales MD Jul 20, 2016 13:03
[2016-07-20 16:00] VITALS: BP 136/76; PULSE 68; RESP 18; TEMP 97.2; O2SAT 98
[2016-07-20] MEDS ORDERED: PROPOFOL 200 MG/20 ML AMP IV ONE (16:01)
[2016-07-20] MEDS ORDERED: DO NOT ADM ANY ANTICOAGULANT DRUGS XX PRN (16:26)
--- NOTE | 2016-07-20 16:41 | PD.PROCEDR ---
GI Procedure PROCEDURE DATE: Jul 20, 2016 INDICATION FOR PROCEDURE Hematochezia, anemia PROCEDURE: The procedure, risks and benefits were discussed with Mr. Mosqueda and informed consent was obtained. Anesthesia sedated him with Diprivan. He was placed in the left lateral decubitus position. EGD: The Pentax videoscope was introduced through the oropharynx and advanced to the second portion of the duodenum under direct visualization. Retroflexion was performed in the stomach. FINDINGS: - normal esophagus - 2cm hiatal hernia - normal gastric mucosa - normal duodenum Flexible Sigmoidoscopy: The Pentax videoscope was introduced through the rectum and advanced to the sigmoid. Retroflexion was performed in the rectum. Colonic prep was [] FINDINGS: - end to side colon-colonic anastomosis in the rectum, mild stenosis noted, able to be transversed with gastroscope. A few clean based ulcerations noted at site of anastomosis. Biopsied. - Severe diverticulosis throughout colon, no active bleeding. Clean based ulcer noted within one diverticulum. - small external hemorrhoids and skin tags ESTIMATED BLOOD LOSS: - minimal COMPLICATIONS: - none IMPRESSION: - few clean based ulcers at site of colo-colonic anastomosis and within diverticulum. No active bleeidng noted - severe diverticulosis - ext hemorrhoids - hiatal hernia PLAN: - return to floor - high fiber diet - avoid NSAID's - await path report -if bleeding recurs may consider sucralfate enemas Ty George MD Jul 20, 2016 16:41
[2016-07-20 20:00] VITALS: BP 130/69; PULSE 95; RESP 24; TEMP 97.5; O2SAT 96
[2016-07-21] VITALS: BP 129/69; PULSE 72; RESP 22; TEMP 97.7; O2SAT 96
[2016-07-21 04:00] VITALS: BP 167/81; PULSE 79; RESP 18; TEMP 98.1; O2SAT 97
[2016-07-21] MEDS: INSULIN ASPART SUPPLEMENTAL SCALE SQ SCH ×2 (06:10→10:23)
[2016-07-21 06:17] LABS: BASOPHIL # 0.1 TH/MM3 (0-0.2); BASOPHIL % 0.6 % (0.0-2.0); EOSINOPHIL # 0.4 TH/MM3 (0-0.4); EOSINOPHIL % 2.7 % (0.0-4.0); HEMATOCRIT 31.5 % (39.0-51.0); HEMO FLAGS DIFF FINAL; LYMPH % 15.5 % (9.0-44.0); LYMPHOCYTE # 2.2 TH/MM3 (1.0-4.8); MEAN CELL VOLUME 77.1 FL (80.0-100.0); MEAN CORPUSCULAR HEMOGLOBIN 25.1 PG (27.0-34.0); MEAN CORPUSCULAR HGB CONC 32.6 % (32.0-36.0); MONO % 9.8 % (0.0-8.0); NEUT % 71.4 % (16.0-70.0); PLATELET COUNT 263 TH/MM3 (150-450); RED BLOOD COUNT 4.08 MIL/MM3 (4.50-5.90); RED CELL DISTRIBUTION WIDTH 17.2 % (11.6-17.2)
[2016-07-21 06:22] LABS: MAGNESIUM 2.2 MG/DL (1.5-2.5); POTASSIUM 3.5 MEQ/L (3.5-5.1)
[2016-07-21] MEDS: SODIUM CHLORIDE 0.9% FLUSH 5 ML FLUSH IV SCH (07:55)
[2016-07-21 08:00] VITALS: BP 160/80; PULSE 87; RESP 16; TEMP 97.5; O2SAT 96
[2016-07-21] MEDS ORDERED: SODIUM CHLOR 0.9% 1000 ML INJ 1,000 ML IV SCH (09:00)
[2016-07-21] MEDS ORDERED: PRAVASTATIN SOD 20 MG TAB PO SCH (09:00)
--- NOTE | 2016-07-21 10:39 | HHI.GIFU ---
Subjective Remarks Pt doing well, no further bleeding episodes noted. Tolerating regular diet. Denies abdominal pain. Objective Vitals I&O Vital Signs Date Time Temp Pulse Resp B/P Pulse Ox O2 Delivery O2 Flow Rate FiO2 07/21/16 04:00 98.1 79 18 167/81 97 07/21/16 00:00 97.7 72 22 129/69 96 07/20/16 20:00 97.5 95 24 130/69 96 07/20/16 16:43 92 16 105/54 95 Room Air 07/20/16 16:25 97.8 72 16 101/48 96 Room Air 07/20/16 16:00 97.2 68 18 136/76 98 07/20/16 12:00 98.1 80 16 171/77 95 I/O 07/20/16 07/20/16 07/20/16 07/21/16 07/21/16 07/21/16 07:00 15:00 23:00 07:00 15:00 23:00 Intake Total 363 ml 240 ml 940 ml 240 ml Output Total 200 ml 250 ml Balance 163 ml 240 ml 940 ml -10 ml Intake Oral 240 ml 240 ml 240 ml IV Total 363 ml Other 700 ml Output Urine Total 200 ml 250 ml # Voids 1 4 6 3 # Bowel Movements 7 4 0 0 Laboratory Laboratory Tests Test 07/21/16 05:50 White Blood Count 14.0 Red Blood Count 4.08 Hemoglobin 10.2 Hematocrit 31.5 Mean Corpuscular Volume 77.1 Mean Corpuscular Hemoglobin 25.1 Mean Corpuscular Hemoglobin 32.6 Concent Red Cell Distribution Width 17.2 Platelet Count 263 Mean Platelet Volume 9.0 Neutrophils (%) (Auto) 71.4 Lymphocytes (%) (Auto) 15.5 Monocytes (%) (Auto) 9.8 Eosinophils (%) (Auto) 2.7 Basophils (%) (Auto) 0.6 Neutrophils # (Auto) 10.0 Lymphocytes # (Auto) 2.2 Monocytes # (Auto) 1.4 Eosinophils # (Auto) 0.4 Basophils # (Auto) 0.1 CBC Comment DIFF FINAL Differential Comment Sodium Level 143 Potassium Level 3.5 Chloride Level 109 Carbon Dioxide Level 26.0 Anion Gap 8 Blood Urea Nitrogen 17 Creatinine 1.43 Estimat Glomerular Filtration 48 Rate Random Glucose 97 Calcium Level 8.0 Magnesium Level 2.2 Physical Exam HEENT: Pupils round and reactive to light; normocephalic; atraumatic; no jaundice. Throat is clear. ABDOMEN: Soft, nondistended, nontender; no hepatosplenomegaly; bowel sounds are present in all four quadrants. EXTREMITIES: No clubbing, cyanosis, or edema. SKIN: Normal; no rash; no jaundice. FOOD SERVICE SPECIALIST: No focal deficits; alert and oriented times three. Assessment and Plan Assessment: (1) GI bleed (2) Anemia Plan 1. GI bleeding/anemia - Flexsig revealed severe diverticulosis throughout colon with no active bleeding. Clean based rectal ulcers at site of anastomosis, biopsied. - EGD only showed 2cm hiatal hernia - avoid NSAID's or anticoagulants - if significant bleeding recurs, recommend urgent IR consult for possible bleeding scan - patient can be discharged from GI standpoint, will arrange outpatient f/u within 1-2 weeks 2. All other medical problems to be addressed by primary team GI will sign off at this time, please call with any questions or concerns. Thank you for this consult. Ty George MD Jul 21, 2016 10:39
--- NOTE | 2016-07-21 10:45 | HHI.DS ---
Dr. Gayle Ye Discharge Summary Admission Date Jul 18, 2016 at 14:44 Discharge Date: Jul 21, 2016 Admitting Diagnosis LOWER GI BLEED (1) GI bleed ICD Code: K92.2 Diagnosis: Principal (2) Chest pain ICD Code: R07.9 Diagnosis: Principal (3) Hypertension ICD Code: I10 Diagnosis: Secondary (4) Diabetes mellitus ICD Code: E11.9 Diagnosis: Secondary (5) Hyperlipidemia ICD Code: E78.5 Diagnosis: Secondary (6) Anxiety ICD Code: F41.9 Diagnosis: Secondary Procedures EGD and flexible sigmoidoscopy 07/20 Brief History - From Admission 80-year-old male with history of HTN, HLD, DM, GERD, BPH, CKD stage III, asthma , diverticulosis, prior GI bleeding, presents with acute onset of rectal bleeding today 07/18. The patient reports a long history of GI bleeding with multiple colonoscopies, diverticular clipping, and recently partial colectomy in [place] in January 2016. He states he has been doing very well since the colectomy, no further bleeding. Approximately 2 weeks ago he started having intermittent chest pains which he states are "hard to explain", located across the anterior chest, sometimes down the left arm, not associated with exertion, lasts several minutes then goes away on its own. No other symptoms like dizziness, SOB, palpitations, diaphoresis, leg pain and swelling. No hx CAD or PE. He started taking baby aspirin 2 weeks ago because of the chest pain. He saw his PCP Dr. Araujo who has referred him to a public service administrator. However this morning around 3:30am the patient started having bright red rectal bleeding mixed with dark stools. He states this is different from his prior GI bleeds because today he had some upper abdominal/epigastric "gurgling", no pain, just uncomfortable. Denies NSAID use. Denies any nausea/vomiting/hematemesis. Denies fevers/chills. He now started feeling weak and lightheaded. He has no other medical complaints at this time. He is from [place], but follows with GI Dr. Ye while here in [place], last seen 2 years ago. Upon arrival, Hgb 12.3, down from 13.7 in 2015. He continues to have BRBPR in the ED. CBC/BMP: 07/21/16 0550 07/21/16 0550 Significant Findings Laboratory Tests Test 07/18/16 07/18/16 07/19/16 07/19/16 18:15 23:17 05:06 17:34 Troponin I LESS THAN 0.02 LESS THAN 0.02 NG/ML NG/ML (0.02-0.05) (0.02-0.05) Hemoglobin 10.8 GM/DL 10.5 GM/DL 10.0 GM/DL (13.0-17.0) (13.0-17.0) (13.0-17.0) Hematocrit 34.5 % 32.8 % 31.2 % (39.0-51.0) (39.0-51.0) (39.0-51.0) Chloride Level 111 MEQ/L (98-107) Blood Urea Nitrogen 24 MG/DL (7-18) Creatinine 1.36 MG/DL (0.60-1.30) Estimat Glomerular Filtration 51 ML/MIN (>89) Rate Random Glucose 110 MG/DL (74-106) Calcium Level 7.6 MG/DL (8.5-10.1) Cholesterol Level 100 MG/DL (120-200) HDL Cholesterol 29.5 MG/DL (40.0-60.0) Test 07/20/16 07/21/16 06:07 05:50 White Blood Count 13.5 TH/MM3 14.0 TH/MM3 (4.0-11.0) (4.0-11.0) Red Blood Count 3.92 MIL/MM3 4.08 MIL/MM3 (4.50-5.90) (4.50-5.90) Hemoglobin 9.7 GM/DL 10.2 GM/DL (13.0-17.0) (13.0-17.0) Hematocrit 30.5 % 31.5 % (39.0-51.0) (39.0-51.0) Mean Corpuscular Volume 77.8 FL 77.1 FL (80.0-100.0) (80.0-100.0) Mean Corpuscular Hemoglobin 24.9 PG 25.1 PG (27.0-34.0) (27.0-34.0) Red Cell Distribution Width 17.3 % (11.6-17.2) Neutrophils (%) (Auto) 74.2 % 71.4 % (16.0-70.0) (16.0-70.0) Monocytes (%) (Auto) 9.5 % (0.0-8.0) 9.8 % (0.0-8.0) Neutrophils # (Auto) 10.0 TH/MM3 10.0 TH/MM3 (1.8-7.7) (1.8-7.7) Monocytes # (Auto) 1.3 TH/MM3 1.4 TH/MM3 (0-0.9) (0-0.9) Potassium Level 3.4 MEQ/L (3.5-5.1) Chloride Level 111 MEQ/L 109 MEQ/L (98-107) (98-107) Estimat Glomerular Filtration 54 ML/MIN (>89) 48 ML/MIN (>89) Rate Random Glucose 108 MG/DL (74-106) Calcium Level 7.8 MG/DL 8.0 MG/DL (8.5-10.1) (8.5-10.1) Creatinine 1.43 MG/DL (0.60-1.30) Imaging Last Impressions Myocardial Perfusion Scan Nuc Med 07/19/16 0600 Signed Impressions: Service Date/Time: Tuesday, July 19, 2016 13:47 - CONCLUSION: No evidence of fixed or reversible perfusion abnormalities. Normal wall motion and ejection fraction. RISK CATEGORY: Low (<1%% Annual Mortality Rate) Edgar Rodgers MD Chest X-Ray 07/18/16 0000 Signed Impressions: Service Date/Time: June 18:03 - CONCLUSION: No acute disease. Lupillo Landaverde MD PE at Discharge GENERAL: Well-developed well-nourished. In no acute distress. Ambulating in the room. SKIN: Warm and dry. No lesions noted. HEENT: Normocephalic. Pupils equal and round. Mucous membranes pink and moist. CARDIOVASCULAR: Regular rate and rhythm. No murmur appreciated. RESPIRATORY: No accessory muscle use. Clear to auscultation. Breath sounds equal bilaterally. GASTROINTESTINAL: Abdomen soft, non-tender, nondistended. Bowel sounds x4. MUSCULOSKELETAL: No obvious deformities. No clubbing or cyanosis. No edema. NEUROLOGICAL: Awake and alert. No focal neurological deficits. Moves upper and lower extremities spontaneously. Normal speech. PSYCHIATRIC: Appropriate mood and affect; insight and judgment normal. Pt update on day of discharge The patient feels well today. He denies any further bleeding. He states he was told by the doctor of dental surgery earlier that he is cleared to go. He states he has rhonchus to tell him to stop his aspirin. He denies any past history of heart attack or stroke. Hospital Course 80-year-old male with history of HTN, HLD, DM, GERD, BPH, CKD stage III, asthma , anxiety, diverticulosis, prior GI bleeding, presents with acute onset of rectal bleeding today 07/18. The patient reports a long history of GI bleeding with multiple colonoscopies, diverticular clipping in the past, and recently partial colectomy in [place] in January 2016. Has been doing very well since the colectomy, no further bleeding, until morning around 3:30am of admission. He is from [place], but follows with GI Dr. Flora Ye while here in [place], last seen 2 years ago. GI Bleeding: BRBPR mixed with dark stools, acute onset 07/18. Hgb decreased from 13.7 in 2014. Held patient's aspirin. Received IVF, IV Protonix. Hemoglobin did drop to ~10, but remained stable. Consulted patient's doctor of dental surgery. EGD and flexible sigmoidoscopy performed 07/21. EGD showed normal esophagus, gastric mucosa, and duodenum; hiatal hernia. Flexible sigmoidoscopy showed a few clean base ulcers at the site of colocolonic anastomosis in within diverticulum, no active bleeding, severe diverticulosis, external hemorrhoids. -Cleared by GI for DC and outpatient follow-up; no NSAIDs/aspirin, high-fiber diet Chest Pains, atypical: intermittent [id number]. No aspirin until cleared by GI. Cardiac enzymes and EKG unremarkable x2. Chest x-ray clear. Nuclear stress test with no signs of ischemia. -Continue outpatient cardiology follow-up. Acute on Chronic Kidney Disease, stage III: Cr 1.66 at admission, previously 1.41 in 2014. Renal function improved to baseline with IVF. HTN: chronic, resumed patient's Lisinopril and Norvasc. HLD: chronic, continue patient's statin. DM, type 2: held patient's Glipizide and Januvia for now while nothing by mouth for testing. Covered with Accu-cheks and SSI. Resume oral hypoglycemics at DC. Chronic leukocytosis: Seen in review of current and previous labs. Op f/u. Anxiety: chronic, continue patient's Xanax prn. Pt Condition on Discharge: Stable Discharge Disposition: Discharge Home Discharge Time: > 30 minutes Discharge Instructions DIET: Follow Instructions for: Heart Healthy Diet, Diabetic Diet Activities you can perform: Regular-No Restrictions Follow up Referrals: Gastroenterology - 1 Week PCP Follow-up - 1 Week Continued Medications: Alprazolam (Alprazolam) 0.5 Mg Tab 0.5 MG PO Q4H PRN ANXIETY Ref 0 TAB Amlodipine (Amlodipine) 10 Mg Tab 10 MG PO DAILY Blood Pressure Management #30 Ref 0 TAB Glipizide (Glipizide) 10 Mg Tab 10 MG PO BIDAC Take 30 minutes before a meal Blood Sugar Management #60 Ref 0 TAB Lisinopril (Lisinopril) 40 Mg Tab 40 MG PO DAILY Blood Pressure Management #30 Ref 0 TAB Simvastatin (Simvastatin) 10 Mg Tab 10 MG PO DAILY Cholesterol Management #30 Ref 0 TAB Sitagliptin (Januvia) 50 Mg Tab 50 MG PO DAILY Blood Sugar Management #30 Ref 0 TAB Terazosin (Terazosin) 10 Mg Cap 10 MG PO HS #30 Ref 0 CAP Discontinued Medications: Aspirin (Aspir-81) 81 Mg Tabdr Additional Information Written by Lauro Espinoza, acting as scribe for Dr. Rosales on 07/21/16 at 10:45. The documentation accurately reflects the work performed [id number] by me on at 1045 Lauro Espinoza Jul 21, 2016 10:45 Guanaco Rosales MD Jul 21, 2016 15:18
[2016-07-21] MEDS ORDERED: TERAZOSIN HCL 5 MG CAP PO SCH (21:00)
--- NOTE | 2016-07-26 10:21 | PQ ---
Physician Query Response Document PATIENT: MILY ALBARRAN : 1935 ADMIT DATE: 07/18/2016 2:44 PM DISCH DATE: 07/21/2016 2:23 PM RESPONDING PROVIDER #: Jesu QUERY TEXT: Clarification of Clinical Diagnostic Findings Please clarify the Acute portion of the Acute on Chronic Kidney Disease diagnosis. -- Acute kidney disease (codes to nonspecific kidney disorder) -- Acute kidney/renal insufficiency (codes to nonspecific kidney disorder) -- Acute kidney/renal failure (codes to acute renal failure) -- Acute kidney/renal injury (codes to acute renal failure) -- Worsening of pre-existing chronic kidney disease, Stage III. -- Other diagnosis -- Clinically unable to determine If you have any additional questions/comments and/or concerns, please do not hesitate to reach out to the CDI/Coding Hotline, Ext. [phone]. The patient's Clinical Indicators include: H Query created by: Nevaeh Obrien on 07/24/2016 4:09 PM RESPONSE TEXT: Worsening of preexisting CKD stage III Electronically signed by: Guanaco Rosales MD 07/26/2016 10:17 AM
== END 2016-07-21 14:23 | disposition home or self-care (01) | DRG 378 ==
LOC: NEPA 10:04 → NEDA 14:44 → N06A 18:29
PROVIDERS: ADMIT Internal Medicine; ATTEND Internal Medicine
PROC: 0DJ08ZZ Inspection of Upper Intestinal Tract, Via Natural or Artificial Opening Endoscopic (ICD-10-PCS; principal; 2016-07-20 15:52)
PROC: 0DBP8ZX Excision of Rectum, Via Natural or Artificial Opening Endoscopic, Diagnostic (ICD-10-PCS; 2016-07-20 15:52)
DX: K92.2 Gastrointestinal hemorrhage, unspecified (principal); K63.3 Ulcer of intestine; E11.9 Type 2 diabetes mellitus without complications; D64.9 Anemia, unspecified; N18.3 Chronic kidney disease, stage 3 (moderate); I12.9 Hypertensive chronic kidney disease with stage 1 through stage 4 chronic kidney disease, or unspecified chronic kidney disease; Z79.82 Long term (current) use of aspirin; K64.4 Residual hemorrhoidal skin tags; K57.30 Diverticulosis of large intestine without perforation or abscess without bleeding; D72.829 Elevated white blood cell count, unspecified; R07.9 Chest pain, unspecified; E78.5 Hyperlipidemia, unspecified; F41.9 Anxiety disorder, unspecified; N40.0 Benign prostatic hyperplasia without lower urinary tract symptoms; K21.9 Gastro-esophageal reflux disease without esophagitis; J45.909 Unspecified asthma, uncomplicated; K44.9 Diaphragmatic hernia without obstruction or gangrene; Z79.84 Long term (current) use of oral hypoglycemic drugs
CPT/HCPCS: 71010; 78452; 80048; 80061; 82550; 82948; 83735; 84484; 85014; 85018; 85025; 85610; 85730; 86850; 86900; 86901; 88305; 93005; 93017; 96360; A9502; C9113; J1815; J2785; J7030